=== PATIENT | female | born 1980 | race Caucasian/White ===

== ENCOUNTER 2023-02-09 08:10 | Outpatient (CLI) | payer BC, SELFPAY | END 2023-02-09 08:11 | disposition home or self-care (01) | PROVIDERS: PCP Family Medicine; Visit Provider Family Medicine | DX: Z00.00 Encounter for general adult medical examination without abnormal findings (principal); R73.03 Prediabetes; R10.9 Unspecified abdominal pain; R42 Dizziness and giddiness | CPT/HCPCS: 80053; 84443 ==

== ENCOUNTER 2023-03-22 08:28 | Outpatient (CLI) | payer BC, SELFPAY ==
--- OUTSIDE RECORDS SUMMARY | 2023-03-23 07:24 | XMS_ITS | Encounter Summary ---
Author Name Unknown Organization [facility] Address [address] [place] [address] Care Team Providers Care Computer Instructor Name Role Phone No Primary/ReferringSylvia Primary Care Provider Unavailable Encounter Details Date Type Department Care Team Description 12/27/2012 Correspondence [facility] [address] [place] [address] Gutierrez Roberts MD HEALTH CARE PROVIDER REPORT Social History Tobacco Use Types Packs/Day Years Used Date Smoking Tobacco: Never Alcohol Use Standard Drinks/Week Comments No 0 (1 standard drink = 0.6 oz pur e alcohol) Comments Yes Sex and Gender Information Value Date Recorded Sex Assigned at Not on file Gender Identity Not on file Sexual Orientation Not on file documented as of this encounter Progress Notes * Gutierrez Roberts MD - 12/27/2012 12:00 AM CST QUE FURNITURE REPAIRER documented in this encounter Plan of Treatment Not on file documented as of this encounter Visit Diagnoses Not on filedocumented in this encounter Care Teams Computer Instructor Relationship Specialty Start Date End Date No Primary/ReferringSylvia PCP - General 11/30/11 documented as of this encounter
--- OUTSIDE RECORDS SUMMARY | 2023-03-23 07:24 | XMS_ITS | Encounter Summary ---
Author Name Unknown Organization [facility] Address [address], [place] [address] Care Team Providers Care Investigative Analyst Name Role Phone No Primary/Referring, Phy Primary Care Provider Unavailable Encounter Details Date Type Department Care Team Description 11/14/2001 [facility] Debra Kang MD [address] [place] [address] NORMAL DELIVERY; POSTPART HEM NEC-POSTPAR; SINGL BORN IN HOSP-NO C/DELIVERY Social History Tobacco Use Types Packs/Day Years Used Date Smoking Tobacco: Never Smokeless Tobacco: Never Alcohol Use Standard Drinks/Week Comments No 0 (1 standard drink = 0.6 oz pur e alcohol) Sex and Gender Information Value Date Recorded Sex Assigned at Not on file Gender Identity Not on file Sexual Orientation Not on file documented as of this encounter Plan of Treatment Not on file documented as of this encounter Visit Diagnoses Diagnosis Normal delivery Other immediate hemorrhage, Single liveborn, born in hospital, delivered without mention of delivery documented in this encounter Care Teams Investigative Analyst Relationship Specialty Start Date End Date No Primary/ReferringSylvia PCP - General 11/30/11 documented as of this encounter
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
--- OUTSIDE RECORDS SUMMARY | 2023-03-23 07:24 | XMS_ITS | Encounter Summary ---
Author Name Unknown Organization [facility] Address [address], [place] [address] Care Team Providers Care Travel Sales Consultant Name Role Phone No Primary/ReferringSylvia Primary Care Provider Unavailable Encounter Details Date Type Department Care Team Description 11/15/2001 [facility] Caitlyn West MD NORMAL DELIVERY Social History Tobacco Use Types Packs/Day Years [...] this encounter Visit Diagnoses Diagnosis Normal delivery documented in this encounter Care Teams Travel Sales Consultant Relationship Specialty Start Date End Date No Primary/ReferringSylvia PCP - General 11/30/11 documented as of this encounter
--- OUTSIDE RECORDS SUMMARY | 2023-03-23 07:24 | XMS_ITS | Encounter Summary ---
Author Name Unknown Organization [facility] Address [address] [address] Care Team Providers Care Landscape Gardener Name Role Phone No Primary/Referring, Phy Primary Care Provider Unavailable Encounter Details Date Type Department Care Team Description 12/08/2011 Consent for Procedure/Treatment [facility] INFORMED CONSENT RECORD Social History Tobacco Use Types Packs/Day Years Used Date Smoking Tobacco: Never Alcohol Use Standard Drinks/Week Comments No 0 (1 standard drink = 0.6 oz pur e alcohol) Comments Yes Sex and Gender Information Value Date Recorded Sex Assigned at Not on file Gender Identity Not on file Sexual Orientation Not on file documented as of this encounter Progress Notes * [facility], PROVIDER - 12/08/2011 12:00 AM CDT documented in this encounter Plan of Treatment Not on file documented as of this encounter Visit Diagnoses Not on filedocumented in this encounter Care Teams Landscape Gardener Relationship Specialty Start Date End Date No Primary/Referring, Sylvia PCP - General 11/30/11 documented as of this encounter
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
== END 2023-03-22 08:29 | disposition home or self-care (01) ==
LOC: NFLDREF 03-23 07:22
PROVIDERS: PCP Family Medicine; Referring Provider Family Medicine; Visit Provider Family Medicine
DX: R73.01 Impaired fasting glucose (principal); R79.89 Other specified abnormal findings of blood chemistry; R73.03 Prediabetes
CPT/HCPCS: 80053

== ENCOUNTER 2023-04-06 09:52 | Outpatient (CLI) | payer BC, SELFPAY ==
--- OUTSIDE RECORDS SUMMARY | 2023-04-06 10:08 | XMS_ITS | Encounter Summary ---
Author Name Unknown Organization [facility] Address [address] [address] Care Team Providers Care Engraver Hand Soft Metals Name Role Phone No Primary/Referring, Phy Primary Care Provider Unavailable Encounter Details Date Type Department Care Team (Late st Contact Info) Description 11/15/2001 [facility] Caitlyn West MD NORMAL DELIVERY Social History [...] delivery documented in this encounter Care Teams Engraver Hand Soft Metals Relationship Specialty Start Date End Date No Primary/ReferringSylvia PCP - General 11/30/11 documented as of this encounter
--- OUTSIDE RECORDS SUMMARY | 2023-04-06 10:08 | XMS_ITS | Clinical Summary ---
Author Name Unknown Organization [facility] Address [address] [place] [address] Care Team Providers Care Housekeeping Aid Name Role Phone No Primary/Referring, Phy Primary Care Provider Unavailable Source Comments You are receiving this document as you are listed as the primary care provider,follow-up provider, or the patient has been referred to you for consultation.This is in compliance with the Medicare and[facility] EHR Incentive Program,which states Providers who transition their patient to another setting of careor provider of care or refers their patient to another provider of care shouldprovide summary care record for each transition of care or referral. [facility] Allergies No known active allergies Medications Medication Sig Dispensed Refills Start Date End Date Status ibuprofen (AKA MOTRIN) 600 MG tablet Take 1 Tab by mouth every 6 hours as needed for Pain. 100 Tab 11 06/15/2012 Active amitriptyline (ELAVIL) 25 MG tablet Take 1-2 Tabs by mouth every evening for 30 days. Sig in [place]. Work Comp. Increase to 50 mg in 2 weeks 60 Tab 02/21/2017 Active ACETAMINOPHEN OR Active Active Problems Problem Noted Date Diagnosed [...] Comments Blood Pressure 110/61 03/03/2017 1:47 PM CATH LAB TECH Pulse 82 03/03/2017 1:47 PM CATH LAB TECH Temperature 36.6 ??C (97.9 ??F) 03/03/2017 1:47 PM CS T Respiratory Rate 16 02/21/2017 2:22 PM CATH LAB TECH Oxygen Saturation 100% 03/03/2017 1:47 PM CATH LAB TECH Inhaled Oxygen Concentration - - Weight 64.5 kg (142 lb 3.2 oz) 12/09/2011 8:00 A M CDT Height 165.1 cm (5' 5) 12/08/2011 8:05 AM CDT Body Mass Index 23.66 12/08/2011 8:05 AM CDT Plan of Treatment Health Maintenance Due Date Last Done Comments Cervical Cancer Screening Due 1980 Hep C Screening (Preventive Services) 1978 HIV Screening (Preventive Services) 1994 Adult Preventive Visit 1996 HepB (2) 12/28/2001 11/30/2001 DTaP/Tdap/Td (2 - Tdap) 11/29/2021 11/30/2011 COVID-19 Vaccine ( - 2022-2 4 season) 2022 Influenza (#1) 2022 12/09/2011 Zoster/Shingles (1 of [...] 7:18 AM 03/07/2007 12:50 PM Care Teams Housekeeping Aid Relationship Specialty Start Date End Date No Primary/Referring, Phy PCP - General 11/30/11
--- OUTSIDE RECORDS SUMMARY | 2023-04-06 10:08 | XMS_ITS | Clinical Summary ---
Author Name Unknown Organization [employer] [facility] [employer] Address [place], [place] [address] Care Team Providers Care Glass Bulb Machine Adjuster Name Role Phone Pcp, No Primary Care [...] age to complete this topic Care Teams Glass Bulb Machine Adjuster Relationship Specialty Start Date End Date Pcp, No . PCP - General 10/30/21
--- OUTSIDE RECORDS SUMMARY | 2023-04-06 10:08 | XMS_ITS | Encounter Summary ---
Author Name Unknown Organization [facility] Address [address], [place] [address] Care Team Providers Care Medical Collections Name Role Phone No Primary/Referring, Phy Primary Care Provider Unavailable Encounter Details Date Type Department Care Team ([facility] st Contact Info) Description 12/08/2011 Consent for Procedure/Treatme nt [facility] Department INFORMED CONSENT RECORD Social History Tobacco [...] as of this encounter Progress Notes * [facility], PROVIDER - 12/08/2011 12:00 AM CDT documented in this encounter Plan of Treatment Not on file documented as of this encounter Visit Diagnoses Not on filedocumented in this encounter Care Teams Medical Collections Relationship Specialty Start Date End Date No Primary/Referring, Sylvia PCP - General 11/30/11 documented as of this encounter
--- OUTSIDE RECORDS SUMMARY | 2023-04-06 10:08 | XMS_ITS | Encounter Summary ---
Author Name Unknown Organization [facility] Address [address] [address] Care Team Providers Care Urban Renewal Manager Name Role Phone No Primary/Referring, Phy Primary Care Provider Unavailable Encounter Details Date Type Department Care Team (Late st Contact Info) Description 12/27/2012 Correspondence [facility] [address] [place] [id number] Gutierrez Roberts MD HEALTH CARE PROVIDER REPORT [...] Roberts MD - 12/27/2012 12:00 AM CST BONING MACHINE FEEDER documented in this encounter Plan of Treatment Not on file documented as of this encounter Visit Diagnoses Not on filedocumented in this encounter Care Teams Urban Renewal Manager Relationship Specialty Start Date End Date No Primary/ReferringSylvia PCP - General 11/30/11 documented as of this encounter
--- OUTSIDE RECORDS SUMMARY | 2023-04-06 10:08 | XMS_ITS | Encounter Summary ---
Author Name Unknown Organization [facility] Address [address], [place] [address] Care Team Providers Care Immunology Specialist Name Role Phone No Primary/Referring, Phy Primary Care Provider Unavailable Encounter Details Date Type Department Care Team (Late st Contact Info) Description 11/14/2001 [facility] Debra Kang MD [address] [place] [address] NORMAL DELIVERY; POSTPART HEM NEC-POSTPAR; SINGL BORN [...] delivery documented in this encounter Care Teams Immunology Specialist Relationship Specialty Start Date End Date No Primary/Referring, Sylvia PCP - General 11/30/11 documented as of this encounter
== END 2023-04-06 09:53 | disposition home or self-care (01) ==
PROVIDERS: PCP Family Medicine; Visit Provider Family Medicine
DX: Z13.220 Encounter for screening for lipoid disorders (principal); R35.0 Frequency of micturition
CPT/HCPCS: 80061; 87086

== ENCOUNTER 2023-04-11 13:20 | Outpatient (CLI) | payer BC, SELFPAY ==
--- NOTE | 2023-04-11 14:00 | CT_ITS ---
Patient: CHERYL ROSENTHAL Facility:?[facility] Patient ID:?[id number] Site Patient ID:?[id number]. Site :?[id number] Study:?CT-Abdomen/Pelvis 80CC ISOVUE 370 AND WATER PREP-04/11/2023 2:37:49 PM Ordering Physician:NAIDA Final Report: Indication: Abnormal liver function tests results Technique: CT of the abdomen and pelvis was obtained with 80 mL of Isovue 370 intravenous contrast. Please note that all CT scans at this facility use dose modulation, iterative reconstruction, and/or weight-based dosing when appropriate to reduce radiation dose to as low as reasonably achievable. Comparison: None Findings: Lower thorax: Scattered bilateral pulmonary nodules measuring up to 4 millimeter on the right (3/17) and 4 millimeter on the left (3/15). <6mm non-chest Consensus guidelines for incidentally detected lung nodule(s) less than [address], not applicable if known malignancy or immunocompromise: Low risk: No routine follow-up. High risk without suspicious morphology AND not in upper lobe: Consider CT at 12 months. High risk AND nodule(s) with suspicious morphology OR in upper lobe: Strongly consider CT at 12 months. (Bernice, et al. Radiology 2017) Liver and biliary tree: Moderate hepatic steatosis. Gallbladder: Cholelithiasis. Spleen: Normal. Pancreas: Normal. Adrenal glands: Normal. Kidneys and ureters: No hydronephrosis. 3 millimeter nonobstructing right renal calculus (2/75). Gastrointestinal tract: Normal appendix. No evidence of bowel obstruction. Peritoneal cavity: Normal. Bladder: Normal. Pelvic organs: Status post hysterectomy. 3.9 x 3.7 centimeter right adnexal cystic lesion (2/125). Vasculature: Normal. Lymph nodes: Normal. Abdominal wall: Normal. Musculoskeletal: Normal. Impression: 1. Moderate hepatic steatosis. 2. Bilateral pulmonary nodules measuring up to 4 millimeter. Consider follow-up CT in 12 months as described above. 3. 3.9 x 3.7 centimeter right adnexal cystic lesion. Consider nonemergent pelvic ultrasound for further evaluation. Please note that all CT scans at this facility use dose modulation, iterative reconstruction, and/or weight-based dosing when appropriate to reduce radiation dose to as low as reasonably achievable. Dictated by Kalyan Min MD @ 04/11/2023 3:04:24 PM Signed by:?Kalyan Min MD @04/11/2023 3:04:24 PM (Electronic Signature)
== END 2023-04-11 13:21 | disposition home or self-care (01) ==
LOC: CT 13:22
PROVIDERS: PCP Family Medicine; Visit Provider Family Medicine
DX: R10.9 Unspecified abdominal pain (principal); R91.8 Other nonspecific abnormal finding of lung field; K76.0 Fatty (change of) liver, not elsewhere classified; R94.5 Abnormal results of liver function studies
CPT/HCPCS: 74177; T1013; Q9967

== ENCOUNTER 2023-04-26 12:04 | Outpatient (CLI) | payer BC, SELFPAY ==
--- NOTE | 2023-04-26 12:15 | US_ITS ---
Patient: CHERYL ROSENTHAL Facility:?[facility] Patient ID:?[id number] Site Patient ID:?[id number]. Site :?[id number] Study:?US-Pelvis TRANSABDOMINAL AND TRANSVAGINAL-04/26/2023 12:42:54 PM Ordering Physician:?AWILDA CARUSO Final Report: INDICATION: Right adnexal cyst on CT COMPARISON: CT 04/11/2023. Pelvic ultrasound 06/25/2019 TECHNIQUE: 2D garcia scale and color Doppler images were acquired of the pelvis using a transabdominal and transvaginal approach. FINDINGS: The uterus is absent. The right ovary measures 4.4 x 2.9 x 2.8 cm in size and the left ovary measures 2.9 x 1.1 x 1.9 cm. The ovaries demonstrate normal arterial and venous blood flow on color Doppler analysis. There are no suspicious fluid collections within the cul-de-sac. Simple right ovarian cyst is present measuring 3.5 x 3.1 x 2.5 cm. IMPRESSION: Simple cyst right ovary measuring 3.5 cm. No suspicious findings. Dictated by Anand Macias MD @ 04/27/2023 6:31:10 AM Signed by:?Anand Macias MD @04/27/2023 6:31:10 AM (Electronic Signature)
--- NOTE | 2023-04-26 19:00 | MM_ITS ---
Patient: CHERYL ROSENTHAL Facility:?[facility] Patient ID:?[id number] Site Patient ID:?[id number]. Site :?1980 Study:?XRay-Breast Bilateral 3D screening mammogram w/cad-04/26/2023 7:43:24 PM Ordering Physician:NAIDA Final Report: BILATERAL DIGITAL SCREENING MAMMOGRAM WITH COMPUTER-AIDED DETECTION AND TOMOSYNTHESIS 04/26/2023 CLINICAL HISTORY: Routine screening exam. COMPARISON: None. TECHNIQUE: Digital mammogram in CC and MLO projections including computer-aided detection (CAD)and tomosynthesis. BREAST COMPOSITION: Scattered fibroglandular densities. FINDINGS: RIGHT Breast: No suspicious findings LEFT Breast: Focal asymmetric density within the upper outer quadrant 6 cm from the nipple. IMPRESSION: LEFT breast asymmetry/mass. RECOMMENDATIONS: Additional mammographic views of the LEFT breast including 3D spot compression CC/MLO. LEFT breast ultrasound may also be required. [facility] contact the patient. BI-RADS Category 0: Incomplete: Need Additional Imaging Evaluation and/or Prior Mammograms for Comparison. Dictated by Anand Macias MD @ 04/27/2023 11:41:59 AM ANTONIETTA/quintin DW/Dictated by: Anand Macias MD @ 04/27/2023 11:43:00 AM Signed by:?Anand Macias MD @04/27/2023 1:54:27 PM (Electronic Signature)
== END 2023-04-26 12:05 | disposition home or self-care (01) ==
PROVIDERS: PCP Family Medicine; Visit Provider Family Medicine
DX: Z12.31 Encounter for screening mammogram for malignant neoplasm of breast (principal); N63.20 Unspecified lump in the left breast, unspecified quadrant; N83.201 Unspecified ovarian cyst, right side; R10.9 Unspecified abdominal pain
CPT/HCPCS: 76830; 76856; 77063; 77067; 93976; T1013

== ENCOUNTER 2023-05-17 11:00 | Outpatient (CLI) | payer BC, SELFPAY ==
--- NOTE | 2023-05-17 10:45 | MM_ITS ---
Patient: CHERYL ROSENTHAL Facility:?[facility] RIS Patient ID:?[id number] Site Patient ID:?[id number]. Site :?[id number] Study:?XRay-Breast Left 3D Diagnostiic mammogram w/cad-05/17/2023 11:57:58 AM Ordering Physician:NAIDA Final Report: DIGITAL DIAGNOSTIC LEFT MAMMOGRAM USING TOMOSYNTHESIS AND COMPUTER-AIDED DETECTION LEFT BREAST ULTRASOUND CLINICAL HISTORY: LEFT breast mass/asymmetry. COMPARISON: 04/26/2023. TECHNIQUE: Digital LEFT mammogram in two projections. Tomosynthesis and CAD utilized. Real-time ultrasound imaging of LEFT breast with imaging documentation. BREAST COMPOSITION: There are areas of scattered fibroglandular density. FINDINGS: 3D spot compression CC/MLO LEFT breast mammogram images submitted. Decreased conspicuity of previously noted asymmetric density. No architectural distortion or suspicious mass. No adenopathy or suspicious calcifications. Targeted LEFT breast ultrasound performed at 3 o`clock 7 cm from the nipple. Normal fibroglandular tissue is present. No solid mass or fibrocystic change. IMPRESSION: No suspicious findings. No evidence of malignancy. RECOMMENDATIONS: Annual BILATERAL screening mammography. Results and recommendations discussed with the patient through an spanish medical interpreter. BI-RADS Category 2: Benign A lay language report of this examination will be provided to the patient. Dictated by Anand Macias MD @ 05/17/2023 12:03:53 PM [email or web address]/Dictated by: Anand Macias MD @ 05/17/2023 12:03:00 PM Signed by:?Anand Macias MD @05/17/2023 12:39:04 PM (Electronic Signature)
--- NOTE | 2023-05-17 11:15 | US_ITS ---
Patient: CHERYL ROSENTHAL Facility:?[facility] Patient ID:?[id number] Site Patient ID:?[id number]. Site :?[id number] Study:?US-Breast Left DR VIERA TO READ-05/17/2023 11:55:12 AM Ordering Physician:?AWILDA CARUSO Final Report: PLEASE SEE DIGITAL DIAGNOSTIC LEFT MAMMOGRAM PERFORMED SAME DAY CRL:gabriella quiroz/Dictated by: Anand Viera MD @ 05/17/2023 12:03:00 PM Signed by:?Anand Viera MD @05/17/2023 12:39:02 PM (Electronic Signature)
== END 2023-05-17 11:01 | disposition home or self-care (01) ==
LOC: MAMMO 11:00
PROVIDERS: PCP Family Medicine; Visit Provider Family Medicine
DX: N63.20 Unspecified lump in the left breast, unspecified quadrant (principal); R92.8 Other abnormal and inconclusive findings on diagnostic imaging of breast
CPT/HCPCS: 76642; 77065; T1013; G0279

== ENCOUNTER 2023-06-06 08:30 | Outpatient (CLI) | payer BC, SELFPAY ==
--- OUTSIDE RECORDS SUMMARY | 2023-06-08 07:36 | XMS_ITS | Encounter Summary ---
Author Name Unknown Organization [facility] Address [address], [place] [address] Care Team Providers Care Meat And Seafood Manager Name Role Phone No Primary/Referring, Phy Primary Care Provider Unavailable Encounter Details Date Type Department Care Team ([facility] st Contact Info) Description 12/08/2011 Consent for Procedure/Treatme nt [facility] Department INFORMED CONSENT RECORD Social [...] as of this encounter Progress Notes * [facility], PROVIDER - 12/08/2011 12:00 AM CDT documented in this encounter Plan of Treatment Not on file documented as of this encounter Visit Diagnoses Not on filedocumented in this encounter Care Teams Meat And Seafood Manager Relationship Specialty Start Date End Date No Primary/Referring, Sylvia PCP - General 11/30/11 documented as of this encounter
--- OUTSIDE RECORDS SUMMARY | 2023-06-08 07:36 | XMS_ITS | Clinical Summary ---
Author Name Unknown Organization [facility] Address [place], [place] [address] Care Team Providers Care Steam Powerplant Supervisor Name Role Phone Pcp, No Primary Care Provider Unavailabl e Allergies No known active allergies Medications Medication Sig Dispensed Refills Start Date End Date Status VENTOLIN HFA 90 mcg/actuation inhalerIndications:Cou gh INHALE 1-2 PUFFS BY MOUTH EVERY 4 HOURS IF NEEDED. 18 g 05/07/2019 Active Active Problems Problem Noted Date [...] Health Maintenance Due Date Last Done Comments Depression screening for age 12+ 12/22/2018 12/22/2017, 08/03/2017, 08/03/2017, Additional history exists BMI (ht and wt on same day) for age 18+ 11/17/2019 11/16/2018, 11/07/2018, 06/06/2018, Additional history exists Pap test for age 21-65 12/22/2020 12/22/2017, 2014 COVID-19 vaccine series (2022- season) 2022 Influenza for age 9-49 10/16/2023 8, 03/17/2016, 03/10/2015, Additional history exists Tetanus booster 03/10/2025 03/10/2015, 07/15, 11/30/2011, Additional history exists HIV for age 15-65 Completed 11/04/2014 Hepatitis C screening for age 18-79 Completed 11/04/2014 Tdap Completed 03/10/2015, 07/15, 11/30/2011, Additional history exists Pneumococcal series for age 6-64 Aged Out No longer eligible based on patient's age to complete this topic Procedures Procedure Name Priority Date/Time Associated Diagnosis Comments BALLPOINT PENS ASSEMBLER THIN PREP PAP SCREEN IMAGED Routine 12/22/2017 3:54 PM FILM PROCESSING SHIFT SUPERVISOR Screening for malignant neoplasm of cervix ANTI HIV 1/2 Routine 11/04/2014 4:15 PM CDT ANTI HCV Routine 11/04/2014 4:15 PM CDT from Last 3 Months or Most Recently Relevant to Health Maintenance Results * BALLPOINT PENS ASSEMBLER THIN PREP PAP SCREEN IMAGED (12/22/2017 3:54 PM FILM PROCESSING SHIFT SUPERVISOR) Case Report Gynecologic Cytology Report ? Case: [id number] ? Authorizing Provider: ??Aide Pack PA ?Collected: ? 12/22/2017 1554 ? Ordering Location: ? [facility] ?? Received: ?12/22/2017 1612 ? Clinic ? First Screen: ?Aarti Rios ? Specimen: ?BALLPOINT PENS ASSEMBLER ThinPrep Vial Screening, Cervical ? 01/04/2018 2:18 PM FILM PROCESSING SHIFT SUPERVISOR [facility]AL [facility] INTERPRETATION/ RESULT NEGATIVE FOR INTRAEPITHELIAL LESION OR MALIGNANCY (NIL) (none) 01/04/2018 2:18 PM FILM PROCESSING SHIFT SUPERVISOR [facility] IMEN ADEQUACY Satisfactory for evaluation Endocervical component present 01/04/2018 2:18 PM FILM PROCESSING SHIFT SUPERVISOR [facility] HPV REQUEST HPV if ASCUS 01/04/2018 2:18 PM FILM PROCESSING SHIFT SUPERVISOR [facility] Date of LMP 12/21/17 01/04/2018 2:18 PM FILM PROCESSING SHIFT SUPERVISOR [facility] Last Pap Date 11/05/14 01/04/2018 2:18 PM FILM PROCESSING SHIFT SUPERVISOR [facility] Last Pap Result NIL 8 2:18 PM FILM PROCESSING SHIFT SUPERVISOR [facility] Abnormal Pap or [place] Bx in last 5 years No 01/04/2018 2:18 PM FILM PROCESSING SHIFT SUPERVISOR [facility] Menstrual Status Regular Periods 01/04/2018 2:18 PM FILM PROCESSING SHIFT SUPERVISOR [facility] [place] Bx Done Today No 01/04/2018 2:18 PM FILM PROCESSING SHIFT SUPERVISOR [facility] Additional Information None given 01/04/2018 2:18 PM FILM PROCESSING SHIFT SUPERVISOR [facility] Automated Review Successful 01/04/2018 2:18 PM FILM PROCESSING SHIFT SUPERVISOR [facility] Comment:Specimen processed s uccessfully by automated loss control representative device, ThinPrep Imaging System, [employer] Note The pap test is a screening technique, not a diagnostic procedure. ??It is used primarily to screen for squamous cancers and precursor lesions. ??Published studies have shown that it is subject to both false negative and false positive results. ??The pap test should not be used as the sole means to diagnose or exclude pre-malignant and malignant lesions. Cytology is screened and interpreted at [facility] - [address], [place] [address] and [facility] - [address]; [place] [address] and [facility] - [address]; [place] [address] [address] [facility] [address]; [place] [address] 01/04/2018 2:18 PM FILM PROCESSING SHIFT SUPERVISOR [facility] Other (Cervical) Non-Blood / Unknown 12/22/2017 3:54 PM FILM PROCESSING SHIFT SUPERVISOR 12/22/2017 4:12 PM FILM PROCESSING SHIFT SUPERVISOR Aide REAGAN PATHOLOGY/CYTOLOGY [facility] [address] [place] [address], [place] * ANTI HCV (11/04/2014 4:15 PM CDT) HEPATITIS C ANTIBODY Non-Reacti ve Non-Reacti ve 11/04/2014 8:32 PM CDT [facility] Blood specimen (specimen) BLOOD SPECIMEN / Unknown Venipuncture / Unknown 11/04/2014 4:15 PM CDT 11/04/2014 4:17 PM CDT N[facility]ative [facility] 11/04/2014 8:32 PM CDT Antibodies to HCV not detected; does not exclude the possibility of exposure to HCV. Leela REAGAN SEND OUTS [facility] [address] [place] [address], * ANTI HIV 1/2 (11/04/2014 4:15 PM CDT) HIV-1/HIV-2 ANTIBODY Non-Reacti ve Non-Reacti ve 11/05/2014 1:59 PM CDT [facility] Blood specimen (specimen) BLOOD SPECIMEN / Unknown Venipuncture / Unknown 11/04/2014 4:15 PM CDT 11/04/2014 4:[address] [facility] - 11/05/2014 1:59 PM CDT HIV-1 p24 and HIV-1/HIV-2 Ab not detected Leela REAGAN SEND OUTS [facility] [address] [place] [address], from Last 3 Months or Most Recently Relevant to Health Maintenance Care Teams Steam Powerplant Supervisor Relationship Specialty Start Date End Date Pcp, No . PCP - General 10/30/21
--- OUTSIDE RECORDS SUMMARY | 2023-06-08 07:36 | XMS_ITS | Encounter Summary ---
Author Name Unknown Organization [facility] Address [address] [address] Care Team Providers Care Underwater Roboticist Name Role Phone No Primary/Referring, Phy Primary Care Provider Unavailable Encounter Details Date Type Department Care Team (Late st Contact Info) Description 11/14/2001 [facility] Debra Kang MD [address] [place] [address] NORMAL DELIVERY; POSTPART HEM NEC-POSTPAR; SINGL BORN [...] delivery documented in this encounter Care Teams Underwater Roboticist Relationship Specialty Start Date End Date No Primary/Referring, Sylvia PCP - General 11/30/11 documented as of this encounter
--- OUTSIDE RECORDS SUMMARY | 2023-06-08 07:36 | XMS_ITS | Encounter Summary ---
Author Name Unknown Organization [facility] Address [address] [address] Care Team Providers Care Hand Spring Repairer Helper Name Role Phone No Primary/Referring, Phy Primary Care Provider Unavailable Encounter Details Date Type Department Care Team (Late st Contact Info) Description 11/15/2001 [facility] Caitlyn West [...] delivery documented in this encounter Care Teams Hand Spring Repairer Helper Relationship Specialty Start Date End Date No Primary/ReferringSylvia PCP - General 11/30/11 documented as of this encounter
--- OUTSIDE RECORDS SUMMARY | 2023-06-08 07:36 | XMS_ITS | Encounter Summary ---
Author Name Unknown Organization [facility] Address [address], [place] [address] Care Team Providers Care Property Staff Accountant Name Role Phone No Primary/Referring, Phy Primary Care Provider Unavailable Encounter Details Date Type Department Care Team (Late st Contact Info) Description 12/27/2012 Correspondence [facility] [address] [place] [id number] Gutierrez Roberts MD HEALTH CARE PROVIDER REPORT [...] Roberts MD - 12/27/2012 12:00 AM CST ENT DEVELOPER documented in this encounter Plan of Treatment Not on file documented as of this encounter Visit Diagnoses Not on filedocumented in this encounter Care Teams Property Staff Accountant Relationship Specialty Start Date End Date No Primary/ReferringSylvia PCP - General 11/30/11 documented as of this encounter
--- OUTSIDE RECORDS SUMMARY | 2023-06-08 07:36 | XMS_ITS | Clinical Summary ---
Author Name Unknown Organization [facility] Address [address] [place] [address] Care Team Providers Care Machine Bunch Maker Name Role Phone No Primary/Referring, Phy Primary Care Provider Unavailable Source Comments You are receiving this document as you are listed as the primary care provider,follow-up provider, or the patient has been referred to you for consultation.This is in compliance with the Medicare and[facility] EHR Incentive Program,which states Providers who transition their patient to another setting of careor provider of care or refers their patient to another provider of care shouldprovide summary care record for each transition of care or referral. [facility] Allergies No known active allergies Medications Medication Sig Dispensed Refills Start Date End Date Status ibuprofen (AKA MOTRIN) 600 MG tablet Take 1 Tab by mouth every 6 hours as needed for Pain. 100 Tab 11 06/15/2012 Active amitriptyline (ELAVIL) 25 MG tablet Take 1-2 Tabs by mouth every evening for 30 days. Sig in [place]. Work Comp. Increase to 50 mg in [...] Comments Blood Pressure 110/61 03/03/2017 1:47 PM RELIGIOUS RITUAL SLAUGHTERER Pulse 82 03/03/2017 1:47 PM RELIGIOUS RITUAL SLAUGHTERER Temperature 36.6 ??C (97.9 ??F) 03/03/2017 1:47 PM CS T Respiratory Rate 16 02/21/2017 2:22 PM RELIGIOUS RITUAL SLAUGHTERER Oxygen Saturation 100% 03/03/2017 1:47 PM RELIGIOUS RITUAL SLAUGHTERER Inhaled Oxygen Concentration - - Weight 64.5 [...] age to complete this topic Advance Directives * Full Code (Latest Code Status on File) Date Activated Date Inactivated Comments 12/08/2011 12:15 PM 12/09/2011 5:50 PM * Full Code Date Activated Date Inactivated Comments 12/08/2011 7:36 AM 12/08/2011 12:15 PM * Full Code Date Activated Date Inactivated Comments 11/30/2011 4:05 PM 12/01/2011 2:52 PM * Full Code Date Activated Date Inactivated Comments 03/07/2007 12:50 PM 03/08/2007 4:31 PM * Full Code Date Activated Date Inactivated Comments 03/07/2007 7:18 AM 03/07/2007 12:50 PM Care Teams Machine Bunch Maker Relationship Specialty Start Date End Date No Primary/Referring, Phy PCP - General 11/30/11
== END 2023-06-06 08:31 | disposition home or self-care (01) ==
LOC: NFLDREF 06-08 07:34
PROVIDERS: PCP Family Medicine; Referring Provider Family Medicine; Visit Provider Family Medicine
DX: R94.5 Abnormal results of liver function studies (principal); E11.9 Type 2 diabetes mellitus without complications
CPT/HCPCS: 80053; T1013

== ENCOUNTER 2024-08-18 16:46 | Emergency (ER) | payer BC, SELFPAY ==
--- OUTSIDE RECORDS SUMMARY | 2024-08-18 16:48 | XMS_ITS | Encounter Summary ---
Author Organization [facility] Address [address] [address] Care Team Providers Care Db2 Dba Name Role Phone No Primary/Referring, Phy Primary Care Provider Unavailable Encounter Details Date Type Department Care Team (Late st Contact Info) Description 12/08/2011 Consent for Procedure/Treatme nt [facility] INFORMED CONSENT RECORD Social History Tobacco Use Types Packs/Day Years Used Date Smoking Tobacco: Never Alcohol Use Standard Drinks/Week Comments No 0 (1 standard drink = 0.6 oz pur e alcohol) Comments Yes Sex and Gender Information Value Date Recorded Sex Assigned at Not on file Legal Sex Female 7:09 AM CDT Gender Identity Not on file Sexual Orientation Not on file documented as of this encounter Progress Notes * [facility], PROVIDER - 12/08/2011 12:00 AM CDT documented in this encounter Plan of Treatment Not on file documented as of this encounter Visit Diagnoses Not on filedocumented in this encounter Care Teams Db2 Dba Relationship Specialty Start Date End Date No Primary/Referring, Phy PCP - General 11/30/11 documented as of this encounter
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
--- OUTSIDE RECORDS SUMMARY | 2024-08-18 16:49 | XMS_ITS | Encounter Summary ---
Author Organization [facility] Address [address] [address] Care Team Providers Care Neonatal Intensive Care Unit Nurse Name Role Phone No Primary/Referring, Phy Primary Care Provider Unavailable Encounter Details Date Type Department Care Team (Late st Contact Info) Description 12/27/2012 Correspondence [facility] [address] [place] [id number] Gutierrez Roberts MD HEALTH CARE PROVIDER REPORT [...] Roberts MD - 12/27/2012 12:00 AM CST L GENERAL MANAGER documented in this encounter Plan of Treatment Not on file documented as of this encounter Visit Diagnoses Not on filedocumented in this encounter Care Teams Neonatal Intensive Care Unit Nurse Relationship Specialty Start Date End Date No Primary/Referring, Sylvia PCP - General 11/30/11 documented as of this encounter
--- OUTSIDE RECORDS SUMMARY | 2024-08-18 16:49 | XMS_ITS | Encounter Summary ---
Author Organization [facility] Address [address] [address] Care Team Providers Care Data Steward Name Role Phone No Primary/Referring, Phy Primary Care Provider Unavailable Encounter Details Date Type Department Care Team (Late st Contact Info) Description 11/15/2001 [facility] Caitlyn West MD NORMAL [...] file Not on file Not on file documented as of this encounter Plan of Treatment Not on file documented as of this encounter Visit Diagnoses Diagnosis Normal delivery documented in this encounter Care Teams Data Steward Relationship Specialty Start Date End Date No Primary/ReferringSylvia PCP - General 11/30/11 documented as of this encounter
--- OUTSIDE RECORDS SUMMARY | 2024-08-18 16:49 | XMS_ITS | Encounter Summary ---
Author Organization [facility] Address [address] [address] Care Team Providers Care Funeral Arrangement Director Name Role Phone No Primary/Referring, Phy Primary Care Provider Unavailable Encounter Details Date Type Department Care Team (Late st Contact Info) Description 11/14/2001 [facility] Debra Kang MD [address] [place] [address] NORMAL DELIVERY; POSTPART HEM NEC-POSTPAR; SINGL BORN [...] delivery documented in this encounter Care Teams Funeral Arrangement Director Relationship Specialty Start Date End Date No Primary/Referring, Phy PCP - General 11/30/11 documented as of this encounter
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
[2024-08-18 16:52] VITALS: BP 119/84; PULSE 83; RESP 16; TEMP 36.2; O2SAT 96
--- NOTE | 2024-08-18 17:12 | ED.EYEPROB ---
HPI - Eye Problem General Chief complaint: Eye Problems Stated complaint: Blood inside Right eye Time Seen by Provider: 08/18/24 16:50 History of Present Illness HPI Narrative: This patient is a 43-year-old female who comes in with concern about some redness on the medial aspect of her left eye. She states that it started as a small little red dot and now has spread over most of the medial aspect of her left eye. She does not report any pain. She does have a headache and gets headaches occasionally. She gets relief with taking ibuprofen. She is not on any anticoagulants. Related Data Home Medications ?Medication ?Instructions ?Recorded ?Confirmed No Known Home Medications 04/06/23 08/18/24 Allergies Allergy/AdvReac Type Severity Reaction Status Date / Time No Known Drug Allergies Allergy Verified 09/30/23 10:09 Review of Systems Status of ROS: Reports: 10 or more systems reviewed and unremarkable except as noted in History and below Narrative: Constitutional: No fevers, no weight gain or loss. Eyes: No discharge. No vision changes. Redness in the medial aspect of her left eye. HENT: No congestion, no sore throat, no ear pain. Cardiovascular: No chest pain, no palpitations. Respiratory: No shortness of breath, no wheezes, no cough. Gastrointestinal: No abdominal pain, no vomiting, no diarrhea. Genitourinary: No dysuria, no hematuria. Musculoskeletal: Normal range of motion. Skin: No rashes, no pruritis. Neurological: No dizziness, weakness, sensory change, speech change. Endo/Heme/Allergies: No bruising or bleeding. No polydipsia. Pysch: no suicidality, no anxiety, no insomnia. All other systems reviewed and are negative. [facility] Medical History Endometriosis ?N80.9 - Endometriosis, unspecified (ICD-10) Surgical History History of endometrial ablation (2019) ?Z98.890 - Other specified postprocedural states (ICD-10) History of tubal ligation ?Z98.51 - Tubal ligation status (ICD-10) History of laparoscopic-assisted vaginal hysterectomy ?Z90.710 - Acquired absence of both cervix and uterus (ICD-10) Family History Father High blood pressure Mother Diabetes Social History What is your current living situation?: I presently have a place to live Problems where you live: no known problems In the past 12 months, utilities in danger of being shut off: no In past 12 months, lack of transportation kept you from medical appts, meetings, work, or getting things needed for daily living: no In the past 12 mos, have been you worried that your food would run out before you had money to buy more?: never true In the past 12 mos, the food you bought just didn't last and you didn't have money to buy more?: never true Smoking Status: Never smoker How often do you have a drink containing alcohol: monthly or less AUDIT-C Alcohol total score: 1 Non-prescribed substance use: denies use How often does anyone, including family, friends and others, physically hurt you: never How often does anyone, including family, friends and others, insult or talk down to you: never How often does anyone, including family, friends and others, threaten you with harm: decline to answer How often does anyone, including family, friends and others, scream or curse at you: decline to answer Exam Narrative: Exam Narrative: Constitutional: Well-developed, well-nourished, no acute distress. HEENT: Normocephalic. Left eye has a subconjunctival hematoma on the medial aspect. Funduscopic exam is completely normal. Visual tompkins are intact and normal. Neck: Normal range of motion. Nontender. Supple. Heart: Regular. No murmurs. Normal rate. Intact distal pulses. Lungs: Clear to auscultation. No chest discomfort. No wheezes, rhonchi, or rales. Abdomen: Normal bowel sounds. Nontender. No rebound tenderness. Genitalia: Deferred. Back: No midline tenderness. Normal range of motion. Extremities: Normal range of motion. No injury. Skin: Intact. No rash. Warm. No erythema or pallor. Neurologic: No altered sensation. No weakness. Alert and oriented. Psychiatric: No suicidality. No anxiety or depression. No insomnia. Nursing notes and vitals signs are reviewed. Const: Vital Signs, click to edit/add: Vital Signs - 24 hr 08/18/24 16:52 Temperature 97.2 F L Pulse Rate [Pulse Oximeter] 83 Respiratory Rate 16 Blood Pressure [Ri ght Upper Arm] 119/84 Pulse Oximetry 96 Oxygen Delivery Me thod Room Air Course Vital Signs Vital signs: Initial Vital Signs Temperature 97.2 F L 08/18/24 16:52 Temperature Source Temporal Artery Scan 08/18/24 16:52 Pulse Rate 83 08/18/24 16:52 Pulse Rhythm Regular 08/18/24 16:52 Respiratory Rate 16 08/18/24 16:52 Blood Pressure 119/84 08/18/24 16:52 Blood Pressure Mean 95 08/18/24 16:52 Blood Pressure Position Sitting 08/18/24 16:52 Pulse Oximetry 96 08/18/24 16:52 Oxygen Delivery Method Room Air 08/18/24 16:52 Vital Signs Temperature 97.2 F L 08/18/24 16:52 Pulse Rate 83 08/18/24 16:52 Respiratory Rate 16 08/18/24 16:52 Blood Pressure 119/84 08/18/24 16:52 Pulse Oximetry 96 08/18/24 16:52 Oxygen Delivery Method Room Air 08/18/24 16:52 Temperature 97.2 F L 08/18/24 16:52 Pulse Rate 83 08/18/24 16:52 Respiratory Rate 16 08/18/24 16:52 Blood Pressure 119/84 08/18/24 16:52 Pulse Oximetry 96 08/18/24 16:52 Oxygen Delivery Method Room Air 08/18/24 16:52 MDM - Eye Problem MDM Narrative Medical decision making narrative: This patient has concern about redness in her eye. She has a subconjunctival hematoma. I gave reassurance is regarding this and stated that it should resolve on its own. She did buy some eyedrops that are designed to get the read out. I have recommended that she do not use does particular eye drops at this time but a lubricating drops such as refresh eyedrops can be used if needed. Discharge Plan Discharge Clinical Impression: Subconjunctival hematoma Patient Disposition: Home, Self-Care Additional Instructions: Use [id number] medicines as needed and directed. Follow up with MD or return if worsening. Prescriptions: No Action No Known Home Medications Follow Up/Referrals: Jonathan Glass MD [Primary Care Provider, Family Practice] Stand Alone Forms: [employer] Info Instructions
== END 2024-08-18 17:40 | disposition home or self-care (01) ==
LOC: ED 17:21
PROVIDERS: Emergency Provider Emergency Medicine Emergency Medical Services; PCP Family Medicine
DX: H11.32 Conjunctival hemorrhage, left eye (principal)
CPT/HCPCS: 99283; 99284